=== PATIENT | female | born 2000 | race Caucasian/White ===

== ENCOUNTER 2024-10-22 22:15 | Observation (INO) ==
[2024-10-22 22:50] LABS: Basophils # (auto) 0.05 K/uL (0.00-0.20); Basophils % (auto) 0.4 %; Eosinophils # (auto) 0.09 K/uL (0.00-0.50); Eosinophils % (auto) 0.7 %; Hematocrit (blood only) 39.4 % (37.0-47.0); Hemoglobin 13.7 g/dl (12.0-16.0); Immature Granulocytes # (auto) 0.05 K/uL (0.01-0.20); Immature Granulocytes % (auto) 0.4 %; Lymphocytes # (auto) 3.39 K/uL (1.20-3.40); Lymphocytes % (auto) 26.2 %; Mean Corpuscular Hemoglobin 27.5 pg (25.0-34.0); Mean Corpuscular Hgb Conc 34.8 g/dL (32.0-36.0); Mean Corpuscular Volume 79.1 fL (80.0-100.0); Mean Platelet Volume 9.8 fL (9.4-12.4); Monocytes % (auto) 5.4 %; Neutrophils # (auto) 8.64 K/uL (1.40-6.50); Neutrophils % (auto) 66.9 %; Platelet Count 305 K/uL (130-400); RDW Coefficient of Variation 12.5 % (11.5-14.5); RDW Standard Deviation 35.5 fL (36.4-46.3); Red Blood Count 4.98 M/uL (4.20-5.40); White Blood Count 12.92 K/ul (4.8-10.8)
[2024-10-22 23:09] LABS: Albumin Globulin Ratio 1.8 (0.9-2); Albumin Level 4.6 gm/dl (3.4-5.0); BUN Creatinine Ratio 15.6 (10-20); Bilirubin,Total 0.3 mg/dl (0.2-1.0); Calcium 9.4 mg/dl (8.6-10.3); Creatinine Clr Calc Pharmacy 83.2 ml/min; Globulin 2.6 gm/dl (2.5-4.0); Potassium 3.8 mmol/L (3.5-5.1); Total Protein 7.2 gm/dl (6.0-8.3)
[2024-10-22 23:16] LABS: Acetaminophen < 3 ug/ml (10-30); Salicylate < 3.0 mg/dl (3.0-30)
[2024-10-22 23:24] LABS: Thyroid Stimulating Hormone 2.858 uIu/ml (0.300-4.500)
[2024-10-22 23:51] LABS: Appearance Urine Clear (Clear); Bilirubin Urine Negative (Negative); Blood Urine Negative (Negative); Color Urine Yellow; Glucose Urine UA Negative (Negative); Ketones Urine Trace (Negative); Leukocyte Esterase Urine Negative (Negative); Nitrite Urine Negative (Negative); Protein Urine Negative (Negative); Specific Gravity Urine 1.026 (1.000-1.030); Urobilinogen Urine Negative (Negative); pH Urine 6.5 (4.5-7.5)
[2024-10-23 00:18] LABS: Amphetamines+Metham, Urine Neg (Neg); Barbiturates, Urine Neg (Neg); Benzodiazepine, Urine Neg (Neg); Cocaine, Urine Neg (Neg); Fentanyl, Urine Neg (Neg); MDMA (Ecstacy), Urine Neg (Neg); Marijuana, Urine Neg (Neg); Methadone, Urine Neg (Neg); Opiate, Urine Neg (Neg); Phencyclidine, Urine Neg (Neg)
--- NOTE | 2024-10-23 00:31 | Emergency Department Note ---
Impression & Plan Drug overdose, multiple drugs, Observed seizure-like activity ED Provider Note NAME: VONNIE ARREDONDO AGE: 23 SEX: F : 2000 ARRIVES VIA: Ambulance INFORMANT: Patient, ED PROVIDER(S): Socorro Fields MD CHIEF COMPLAINT: Medication overdose HPI: This this is a 23-year-old female present for medication overdose. Patient states that she is currently at the [facility]; a psychiatric facility nearby. She states that she been given medications for the last 3 weeks however she did not take his medications. Instead she states that she stashed them and then took all 3 weeks worth at once. She notes these medications included Thorazine, Prozac, Mucinex, Atarax, Ativan, metformin, Singulair, Zyprexa, Trileptal, Topamax and trazodone. She notes that she did have a seizure however had no postictal period as per EMS. EMS states that they used the ammonia salts to stop her seizure. She states she just medication around 3/4 PM, 7+ hours ago. ROS: See above HPI for pertinent positives & negatives. A total of 10 systems reviewed and were otherwise negative. PAST MEDICAL HISTORY: See Below PAST SURGICAL HISTORY: See Below FAMILY HISTORY: See Below SOCIAL HISTORY: See Below HOME MEDICATIONS: See Below ALLERGIES: See Below VITALS: See Below PHYSICAL EXAMINATION: General: resting comfortably in no acute distress Head: Normocephalic and atraumatic Eyes: Normal inspection, extraocular muscles intact Ear, nose, throat: Normal external exam Neck: Normal range of motion Respiratory: lungs clear to auscultation bilaterally Cardiovascular: Regular rate/rhythm, no murmur GI: soft, nontender, no guarding or rebound Extremities: nontender, moves all extremities Neuro: The patient awake and alert, appropriately conversive, no focal deficits, symmetric faces Skin: Warm, dry, and intact MEDICAL DECISION MAKING: This is a 23-year-old female seen for medication overdose. Patient has a large list of medications that she was on at the facility. At this time she has no abnormal vital signs noted including hypotension, tachycardia, tachypnea, hypoxia. She appears clinically well, not confused, sedated, altered in any way. No signs of serotonin syndrome. -Bloodwork is reviewed showing no significant leukocytosis, anemia, electrolyte or creatinine abnormality -No coingestions -ECG independently interpreted by me with normal sinus rhythm, rate of 88, normal axis, normal NV, normal QRS, normal QTc, no ST segment elevations consistent with STEMI criteria -Poison Control Center recommends 8 hours of observation -Patient had episode of seizure-like activity, body shaking without tonic-clonic movements.. I observed this which is responsive to sternal rub. Based quickly. There is no tachycardia during seizure-like activity. Will send a lactic acid to help confirm true seizure-like activity -Lactic acid currently negative -Care discussed with Dr. Noonan for admission, on-call hospitalist Differential diagnosis: Medication overdose, SI, seizure Independent History obtained from: Staff member at facility Diagnostics interpreted by me: ECG: See above Cardiac Monitoring: An order was placed for continuous cardiac monitoring. The monitor shows a rate of 77 with sinus rhythm. Critical Care Note: I have personally spent 37 minutes of critical care time in the direct management of this patient. This includes bedside care, interpretation of diagnostic studies, and testing, discussion with consultants, patient, and family members, and other required patient management activities. This 37 minutes is in excess of all separately billable procedures. Past Med/Surg History Problem List (Updated 10/23/24 @ 01:27 by Socorro Fields MD) Observed seizure-like activity (Acute) Drug overdose, multiple drugs (Acute) Social History Smoking Status: Current some day smoker Preferred Language: Mongolian Allergies Allergies Allergy/AdvReac Type Severity Reaction Status Date / Time cinnamon Allergy Anaphylaxis Verified 10/22/24 23:20 ibuprofen AdvReac Unknown Verified 10/22/24 23:20 latex AdvReac Unknown Verified 10/22/24 23:20 melatonin AdvReac Unknown Verified 10/22/24 23:20 quetiapine AdvReac Agitated Verified 10/22/24 23:20 Home Meds Home Medications Medication Instructions Recorded Confirmed Advair Diskus mcg inhalation BID 10/22/24 [place] 3 1,000 mg PO QAM 10/22/24 10/22/24 Singulair 10 mg PO QAM 10/22/24 10/22/24 Topamax 100 mg PO QAM 10/22/24 10/22/24 Trileptal 300 mg PO BID 10/22/24 10/22/24 albuterol 90 mcg inhalation Q4 PRN asthma 10/22/24 10/22/24 fluoxetine 40 mg PO QAM 10/22/24 10/22/24 hydroxyzine HCl 50 mg PO TID 10/22/24 10/22/24 levothyroxine 50 mcg PO QAM 10/22/24 10/22/24 metformin 500 mg PO QAM 10/22/24 10/22/24 trazodone 50 mg PO QPM 10/22/24 10/22/24 Results & Data (ED) Vital Signs Vital Signs - 24 hr 10/22/24 22:23 10/22/24 22:43 10/22/24 22:52 Temperature 36.5 C Temperature Source Oral Pulse Rate 91 H 89 Pulse Rate [Apical] Respiratory Rate 18 Respiratory Effort / Characteristics Respiratory Depth Respiratory Pattern Blood Pressure 124/82 Blood Pressure [Right Arm] Blood Pressure Mean 96 Blood Pressure Mean [Right Arm] Blood Pressure Position [Right Arm] Pulse Oximetry 96 96 Oxygen Delivery Method Room Air Sepsis Recent Fever Within 48 Hours No Sepsis New/Unexplained Change in Mental Status N/A Sepsis Action Taken by Nursing No Action Required 10/23/24 00:06 Temperature Temperature Source Pulse Rate Pulse Rate [Apical] 77 Respiratory Rate 20 Respiratory Effort / Characteristics Non-Labored Spontaneous Respiratory Depth Normal Respiratory Pattern Regular Blood Pressure Blood Pressure [Right Arm] 106/67 Blood Pressure Mean Blood Pressure Mean [Right Arm] 80 Blood Pressure Position [Right Arm] Lying Pulse Oximetry 98 Oxygen Delivery Method Room Air Sepsis Recent Fever Within 48 Hours Sepsis New/Unexplained Change in Mental Status Sepsis Action Taken by Nursing Laboratory Data 10/22/24 22:30 10/22/24 22:30 Lab Results 10/22/24 10/22/24 10/23/24 Range/Units 22:30 22:37 00:17 WBC 12.92 H (4.8-10.8) K/ul RBC 4.98 (4.20-5.40) M/uL Hgb 13.7 (12.0-16.0) g/dl Hct 39.4 (37.0-47.0) % MCV 79.1 L (80.0-100.0) fL MCH 27.5 (25.0-34.0) pg MCHC 34.8 (32.0-36.0) g/dL RDW Std Deviation 35.5 L (36.4-46.3) fL RDW Coeff of Jennifer 12.5 (11.5-14.5) % Plt Count 305 (130-400) K/uL MPV 9.8 (9.4-12.4) fL Immature Gran % (Auto) 0.4 % Neut % (Auto) 66.9 % Lymph % (Auto) 26.2 % [place] % (Auto) 5.4 % Eos % (Auto) 0.7 % Baso % (Auto) 0.4 % Neut # (Auto) 8.64 H (1.40-6.50) K/uL Lymph # (Auto) 3.39 (1.20-3.40) K/uL [place] # (Auto) 0.70 H (0.11-0.59) K/uL Eos # (Auto) 0.09 (0.00-0.50) K/uL Baso # (Auto) 0.05 (0.00-0.20) K/uL Immature Gran # (Auto) 0.05 (0.01-0.20) K/uL Sodium 137 (136-145) mmol/L Potassium 3.8 (3.5-5.1) mmol/L Chloride 107 (98-107) mmol/L Carbon Dioxide 22 (21-32) mmol/L Anion Gap 8 (3-11) BUN 14 (6-23) mg/dl Creatinine 0.90 (0.6-1.2) mg/dl Est Cr Clr Drug Dosing 83.2 ml/min eGFR 91.55 BUN/Creatinine Ratio 15.6 (10-20) Glucose 95 (70-99(Fasting)) mg/dl Lactate 0.8 (0.4-2.0) mmol/L Calcium 9.4 (8.6-10.3) mg/dl Total Bilirubin 0.3 (0.2-1.0) mg/dl AST 14 (13-39) U/L ALT 12 (7-52) U/L Alkaline Phosphatase 97 (34-104) U/L Total Protein 7.2 (6.0-8.3) gm/dl Albumin 4.6 (3.4-5.0) gm/dl Globulin 2.6 (2.5-4.0) gm/dl Albumin/Globulin Ratio 1.8 (0.9-2) TSH 2.858 (0.300-4.500) uIu/ml Urine Color Yellow Urine Appearance Clear (Clear) Urine pH 6.5 (4.5-7.5) Ur Specific [place] 1.026 (1.000-1.030) Urine Protein Negative (Negative) Urine Glucose (UA) Negative (Negative) Urine Ketones Trace H (Negative) Urine Blood Negative (Negative) Urine Nitrite Negative (Negative) Urine Bilirubin Negative (Negative) Urine Urobilinogen Negative (Negative) Ur Leukocyte Esterase Negative (Negative) Salicylates < 3.0 L (3.0-30) mg/dl Urine Opiates Screen Neg (Neg) Ur Methadone, Qual Neg (Neg) Urine Fentanyl Screen Neg (Neg) Acetaminophen < 3 L (10-30) ug/ml Urine Barbiturates Neg (Neg) Ur Phencyclidine (PCP) Neg (Neg) U Amphetamin/Meth Scrn Neg (Neg) MDMA (Ecstasy) Screen Neg (Neg) U Benzodiazepines Scrn Neg (Neg) Ur Cocaine Metabolite Neg (Neg) U Marijuana (THC) Screen Neg (Neg) Ethyl Alcohol mg/dL < 10.0 (<10.0) mg/dl SARS-CoV-2, RNA, NAAT NEGATIVE (NEGATIVE) Discharge Plan Visit Data Chief Complaint: Seizure Stated Complaint: SEIZURE, OVERDOSE ED Provider: Socorro Fields Discharge Problem: Drug overdose, multiple drugs, Observed seizure-like activity Forms Stand Alone Forms: My [facility] Prescriptions Prescriptions: No Action Advair Diskus inhalation BID fluoxetine capsule 40 mg PO QAM hydroxyzine HCl 50 mg PO TID levothyroxine 50 mcg PO QAM [place] 3 1,000 mg PO QAM Singulair 10 mg PO QAM Topamax 100 mg PO QAM Trileptal 300 mg PO BID albuterol 90 mcg inhalation Q4 PRN (Reason: asthma) metformin 500 mg PO QAM trazodone 50 mg PO QPM Referrals Referrals: Joana Langley [Primary Care Provider] - Discharge Problem: Drug overdose, multiple drugs Qualifiers: Encounter type: initial encounter Injury intent: intentional self-harm Q ualified Code(s): T50.912A - Poisoning by multiple unspecified drugs, medicaments and biological substances, intentional self-harm, initial encounter
--- NOTE | 2024-10-23 01:18 | History & Physical Report ---
Date of Service October 23, 2024 Assessment & Plan (1) Observed seizure-like activity: (2) Drug overdose, multiple drugs: Plan Patient w/ hx of Depression, Hypothyroidism, and admission to [facility] due to threat of self harm in separate admission to another hospital 1 month ago who comes to ED after intentional medication overdose and seizure-like activity. Medication overdose - Patient with stated medication overdose as detailed above. 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) - Patient states she had an episode of seizures in the past, and when asked she stated first that it was 10 years ago and then that it was 13 years ago; never treated - Patient's initial episode seen by EMS resolving with smelling salts, and episodes in ED being interrupted by noxious stimuli does not follow typical pattern for usual tonic/clonic seizures ?suggestive of PNES given psychiatric hx - Will hold off addition of anti-seizure medications and/or neurology consult given episodes do not appear to follow typical neurologic pattern, but instead raise the question for PNES - Psychiatry consulted as detailed above Asthma - Uses inhaler twice a day to prevent episodes of SOB (not because she feels SOB0 - Continue albuterol inh prn Dispo: Admit to PCU with 1:1 Fluids: NSS Diet: Regular VTE ppx: Ambulation History of Present Illness Chief Complaint: Intentional Overdose, Seizure-like activity Primary Care Provider: Joana Langley Patient w/ hx of Depression, Hypothyroidism, and admission to [facility] due to threat of self harm in separate admission to another hospital 1 month ago who comes to ED after intentional medication overdose. Patient currently staying in [facility] for "adjustment of medication" after she threatened to hurt herself if they discharge her from the hospital she was admitted to which she cannot recall the name of. While in [facility], she was being given her pills daily that she then hid away for 3 weeks and took them all today (3 weeks worth of Thorazine, Prozac, Mucinex, Ativan, Metformin, Singulair, Zyprexa, Topamax, and Trazodone). When EMS arrived, patient was having a seizure that resolved after EMS used smelling salts. After arrival to ED, patient had 3-4 more episodes of seizures lasting around 2-3 minutes of whole body jerking and mild confusion for ~1 minutes after event ended. Nursing states that during seizure- like activity, patient would withdraw from sternal rub (and the first episode resolved after a sternal rub was applied). On her 4th seizure-activity, patient once again withdrew from sternal rub and from noxious stimuli with press of nail bed. After this event ended, patient appeared confused for a few seconds and then responded when her name was called. Patient states she has no family members nearby and does not believe any family members would come visit. Labs/Imaging: CBC with mild leukocytosis with neutrophilic predominance, Hgb of 13.7 with low MCV (79.1). CMP w/o electrolyte abnormalities and renal markers within reference range. LFTs unremarkable. TSH of 2.858. UTox negative. Medical History: [Reviewed] Medications: [Reviewed] Surgical History: [Reviewed] Family history: [Reviewed] Allergies: [Reviewed] Social History: [Reviewed] Allergies Allergy/AdvReac Type Severity Reaction Status Date / Time cinnamon Allergy Anaphylaxis Verified 10/22/24 23:20 ibuprofen AdvReac Unknown Verified 10/22/24 23:20 latex AdvReac Unknown Verified 10/22/24 23:20 melatonin AdvReac Unknown Verified 10/22/24 23:20 quetiapine AdvReac Agitated Verified 10/22/24 23:20 Home Medications Medication Instructions Recorded Confirmed Type Advair Diskus mcg inhalation BID 10/22/24 History [place] 3 1,000 mg PO QAM 10/22/24 10/22/24 History Singulair 10 mg PO QAM 10/22/24 10/22/24 History Topamax 100 mg PO QAM 10/22/24 10/22/24 History Trileptal 300 mg PO BID 10/22/24 10/22/24 History albuterol 90 mcg inhalation Q4 PRN asthma 10/22/24 10/22/24 History fluoxetine 40 mg PO QAM 10/22/24 10/22/24 History hydroxyzine HCl 50 mg PO TID 10/22/24 10/22/24 History levothyroxine 50 mcg PO QAM 10/22/24 10/22/24 History metformin 500 mg PO QAM 10/22/24 10/22/24 History trazodone 50 mg PO QPM 10/22/24 10/22/24 History Past Med/Surg History Problem List (Updated 10/23/24 @ 01:27 by Socorro Fields MD) Observed seizure-like activity (Acute) Drug overdose, multiple drugs (Acute) Social History Smoking Status: Current every day smoker Tobacco Type: Cigarettes Cigarettes Per Day: 2 packs per day; Hx Alcohol Use: Yes Hx Substance Use: No Preferred Language: Malay Communication Ability: Effective Crate Tier Required: No Beliefs That Will Affect Care: None Current Living Situation: Other Current Living Situation Comment: [facility] Assistive Devices: Glasses Review of Systems Review of Systems: As per HPI Physical Exam Physical Exam: GENERAL: AAOx4, afebrile, calm, NAD HEAD: AT, NC EYES: ANTHONY, EOM intact THROAT: normal to visual inspection CHEST: symmetric chest expansions with respirations CARDIO: RRR, no r/m/g PULMONARY: CTA b/l, normal respiratory effort, no respiratory distress GI: soft, non tender, non distended EXTREMITIES: no swelling or calf tenderness b/l SKIN: no rashes or skin lacerations NEURO: speech of normal content and pace, no focal neurologic deficits and motor/sensory function is preserved Results & Data Results & Data Vital Signs (Past 12 Hours) Vital Signs Temp Pulse Pulse Resp BP BP Pulse Ox 10/23/24 00:06 77 20 106/67 98 10/22/24 22:52 96 10/22/24 22:43 89 10/22/24 22:23 36.5 C 91 H 18 124/82 96 O2 Del Method 10/23/24 00:06 Room Air 10/22/24 22:52 Room Air 10/22/24 22:43 10/22/24 22:23 Supervising Physician Co-Signing Physician Notes Attending addendum: I have physically seen this patient, have supervised the medical residents activities, and agree with the H&P unless as otherwise noted. Assessment and Plan: The patient is a 23-year-old female with past medical history including depression, hypothyroidism, and recent admission to [facility] psychiatry. She was determined to be eighth a threat to herself, with potential self-harm, at a previous admission in the hospital 1 month ago. She comes to the emergency department at [facility] with intentional medication overdose and seizure- like activity. #Medication overdose the patient will be admitted to telemetry for serial cardiac enzymes, serial EKG's, cardiac rhythm monitoring and a 2-D echocardiogram with Dopplers. Placed on maintenance IV fluids Follow serial laboratories Consult to psychiatry Seizure versus psychogenic nonepileptic seizures- No history of previous treatment noted Monitor on telemetry Any use of antiseizure medications will be depend upon psychiatry and/or neurology input Asthma- Continue routine albuterol inhaler as needed Patient be mated to one-to-one observation . Resident Activity Tracking Resident Involvement: Resident Care Provided Care Provided: Adult Hospital Medicine (2) Drug overdose, multiple drugs Encounter type: initial encounter Injury intent: intentional self-harm Qualified Code(s): T50.912A - Poisoning by multiple unspecified drugs, medicaments and biological substances, intentional self-harm, initial encounter
[2024-10-23] MEDS ORDERED: POLYETHYLENE (MIRALAX) 17 GM PACK PO PRN (03:32)
[2024-10-23] MEDS: SODIUM CHLORIDE 0.9% 1,000 ML IV SCH (03:42)
--- NOTE | 2024-10-23 06:03 | Billing Data ---
Date of Service October 23, 2024 Coding Level of Care Code 23890 INT INP/OBS CARE
[2024-10-23] MEDS ORDERED: PHARMACY GLYCEMIC MGMT CONSULT PRN (08:58)
[2024-10-23] MEDS ORDERED: GLUCOSE 40% GEL 15 GM TUBE PO PRN (09:30)
[2024-10-23] MEDS ORDERED: GLUCOSE 10 TAB/TUBE PO PRN (09:30)
[2024-10-23] MEDS ORDERED: CARBOHYDRATES FOR HYPOGLYCEMIA PO PRN (09:30)
[2024-10-23] MEDS ORDERED: DEXTROSE 50% 50 ML SYRINGE IV PRN (09:30)
[2024-10-23] MEDS ORDERED: GLUCAGON FOR INJ 1 MG VIAL SQ PRN (09:30)
[2024-10-23] MEDS: INSULIN ASPART PER UNIT CHARGE SC SCH (11:46)
--- NOTE | 2024-10-23 13:14 | Electrocardiogram Report ---
Test Reason : Blood Pressure : */* mmHG Vent. Rate : 88 BPM Atrial Rate : 88 BPM P-R Int : 178 ms QRS Dur : 74 ms QT Int : 376 ms P-R-T Axes : 43 3 25 degrees QTcB Int : 454 ms Normal sinus rhythm with sinus arrhythmia Low voltage QRS Borderline ECG No previous ECGs available Confirmed by Kyle Leon ([id number]) on 10/23/2024 1:14:08 PM Referred By: Joana Langley Confirmed By: Kyle Leon
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
[2024-10-23] MEDS: ACETAMINOPHEN 325 MG TAB PO PRN (18:09)
[2024-10-23] MEDS: MONTELUKAST SODIUM 10 MG TABLET PO SCH (20:06)
[2024-10-23] MEDS: OXcarbazepine 150 MG TABLET PO SCH (20:06)
[2024-10-23] MEDS: ALBUTEROL HFA 8 GM INHALER INH PRN (22:03)
[2024-10-24 07:17] LABS: Hematocrit (blood only) 37.8 % (37.0-47.0); Hemoglobin 12.9 g/dl (12.0-16.0); Mean Corpuscular Hemoglobin 27.3 pg (25.0-34.0); Mean Corpuscular Hgb Conc 34.1 g/dL (32.0-36.0); Mean Corpuscular Volume 79.9 fL (80.0-100.0); Mean Platelet Volume 9.9 fL (9.4-12.4); Platelet Count 258 K/uL (130-400); RDW Coefficient of Variation 12.5 % (11.5-14.5); RDW Standard Deviation 35.9 fL (36.4-46.3); Red Blood Count 4.73 M/uL (4.20-5.40); White Blood Count 8.15 K/ul (4.8-10.8)
[2024-10-24 07:41] VITALS: RESP 18
[2024-10-24 07:41] LABS: BUN Creatinine Ratio 9.1 (10-20); Calcium 8.8 mg/dl (8.6-10.3); Creatinine Clr Calc Pharmacy 135.3 ml/min; Potassium 3.9 mmol/L (3.5-5.1)
[2024-10-24 08:33] LABS: Estimated Average Glucose 103 mg/dl; Hemoglobin A1C 5.2 % (4.5-5.6)
--- OUTSIDE RECORDS SUMMARY | 2024-10-24 09:39 | External Medical Summary | Continuity of Care Document ---
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 Name Role Phone Louisa Guerrero Primary Care Physician [phone] [id number] - 09/01/24 [facility] [address] Encounter Diagnosis Fall on ice(Discharge Diagnosis) - 09/01/24 Back pain(Discharge Diagnosis) - 09/01/24 Left foot pain(Discharge Diagnosis) - 09/01/24 Neck pain(Discharge Diagnosis) - 09/01/24 Discharge Disposition: Home or Self Care Attending Physician: DO Hartley Scott Charles Referring Physician: DO Hartley Scott Charles Allergies, Adverse Reactions, Alerts Substance Criticality Severity Reaction Reaction Severity Status ibuprofen rebound headache Act jack melatonin unknown Active cinnamon anaphylaxis Active SEROquel Aggression homicidal ideation suicidal ideation Active Latex Itching swelling Active Assessment and Plan Extracted from: Title:Office Visit Note - APSO Author:DO Hartley Scott Charles Date:09/01/24 1.Fall on ice Patient had significant follow-upat work causing back pain neck pain and other concernsat this time we will provide muscle relaxer continue Aleve and Tylenol I think physical therapy is the best optionthere is noserious trauma to right think any broken bones occurred or that we would need x-ray or furtherworkup and that sincecontinued Tylenol usemuscle relaxerstrictly at night to help withsymptoms of pain and help youto be able to sleep let us know if any other concerns or issuesgave note to stay out of work this weekend in order to rest out let us know if you are feeling betterand you can return to work but at this point I thinkrest andphysical therapyand the Aleve and Tylenol are the best option 2.Back pain 3.Left foot pain 4.Neck pain Immunizations Given and Recorded Vaccine Date Status Refusal Reason influenza virus vaccine, inactivated 05/18/24 Give n influenza virus vaccine, inactivated 1 04/29/22 Re corded influenza virus vaccine, inactivated 2 05/06/20 Re corded influenza virus vaccine, inactivated 08/22/19 Ronen rded influenza virus vaccine, inactivated 05/29/17 Ronen rded influenza virus vaccine, inactivated 3 05/15/09 Re corded influenza virus vaccine, inactivated 05/15/09 Ronen rded influenza virus vaccine, inactivated 05/15/09 Ronen rded influenza virus vaccine, inactivated 4 07/15/08 Re corded influenza virus vaccine, inactivated 07/15/08 Ronen rded influenza virus vaccine, inactivated 07/15/08 Ronen rded rabies vaccine, purified chick embryo 5 10/03/22 R ecorded rabies vaccine, purified chick embryo 6 09/26/22 R ecorded rabies vaccine, purified chick embryo 7 09/22/22 R ecorded rabies vaccine, purified chick embryo 8 09/19/22 R ecorded tetanus/diphtheria/pertuss, acel (Tdap) 09/19/22 R ecorded tetanus/diphtheria/pertuss, acel (Tdap) 9 02/08/13 Recorded pneumococcal 13-valent vaccine 10 10/18/21 Recorde d haemophilus b conj (PRP-OMP) vaccine 11 10/12/21 R ecorded haemophilus b conj (PRP-OMP) vaccine 03/09/02 Ronen rded haemophilus b conj (PRP-OMP) vaccine 02/24/01 Ronen rded haemophilus b conj (PRP-OMP) vaccine 05/19/00 Ronen rded haemophilus b conj (PRP-OMP) vaccine 03/31/00 Ronen rded SARS COVID Vaccine Unspecified 06/12/21 Recorded SARS-CoV-2 (COVID-19) mRNA-1273 vaccine 12 10/11/20 Recorded SARS-CoV-2 (COVID-19) mRNA-1273 vaccine 13 09/13/20 Recorded meningococcal group B vaccine 06/29/18 Recorded meningococcal conjugate vaccine 08/25/17 Recorded meningococcal conjugate vaccine 14 02/08/13 Record ed human papillomavirus vaccine 15 02/25/17 Recorded human papillomavirus vaccine 16 10/21/16 Recorded human papillomavirus vaccine 17 08/23/16 Recorded Meningococcal Vaccine Unspecified 02/08/13 Recorde d varicella virus vaccine 18 03/13/10 Recorded varicella virus vaccine 19 06/01/01 Recorded Hepatitis A Vaccine Unspecified 12/04/06 Recorded Hepatitis A Vaccine Unspecified 05/27/06 Recorded hepatitis A pediatric vaccine 12/04/06 Recorded hepatitis A pediatric vaccine 05/27/06 Recorded hepatitis A adult vaccine 20 12/04/06 Recorded hepatitis A adult vaccine 21 05/27/06 Recorded poliovirus vaccine, inactivated 22 09/11/04 Record ed poliovirus vaccine, inactivated 23 06/01/01 Record ed poliovirus vaccine, inactivated 24 02/24/01 Record ed poliovirus vaccine, inactivated 25 05/19/00 Record ed poliovirus vaccine, inactivated 26 03/31/00 Record ed measles/mumps/rubella virus vaccine 27 09/11/04 Re corded measles/mumps/rubella virus vaccine 28 02/24/01 Re corded diphtheria/tetanus/pertuss, acel (DTaP) 29 09/11/04 Recorded diphtheria/tetanus/pertuss, acel (DTaP) 30 06/01/01 Recorded diphtheria/tetanus/pertuss, acel (DTaP) 31 02/18/01 Recorded diphtheria/tetanus/pertuss, acel (DTaP) 32 05/19/00 Recorded diphtheria/tetanus/pertuss, acel (DTaP) 33 03/31/00 Recorded pneumococcal 7-valent vaccine 07/27/01 Recorded pneumococcal 7-valent vaccine 06/01/01 Recorded hepatitis B adult vaccine 02/24/01 Recorded hepatitis B adult vaccine 03/31/00 Recorded hepatitis B adult vaccine 99 Recorded hepatitis B pediatric vaccine 02/24/01 Recorded hepatitis B pediatric vaccine 03/31/00 Recorded hepatitis B pediatric vaccine 99 Recorded 1Result Comment: Auto Bumper Straightener: [employer] PA[employer] 2Result Comment: Unit: Unknown Route: Intramuscular Auto Bumper Straightener: Sanof[employer] P[employer]ur 3Result Comment: Auto Bumper Straightener: Unknown Auto B[employer] Straightener 4Result Comment: Auto Bumper Straightener: Unknown Auto B[employer] Straightener 5Result Comment: Auto Bumper Straightener: Sanofi Pasteur 6Result Comment: Auto Bumper Straightener: Sanof[employer] P[employer]ur 7Result Comment: Auto Bumper Straightener: Sanof[employer] P[employer]ur 8Result Comment: Auto Bumper Straightener: Sanofi Pasteur 9Result Comment: Auto Bumper Straightener: Not Listed 10Result Comment: Auto Bumper Straightener: [email or web address] [place] 11Result Comment: Auto Bumper Straightener: [employer] 12Result Comment: Unit: Unknown Route: Intramuscular Auto Bumper Straightener: [employer] 13Result Comment: Unit: Unknown Route: Intramuscular Auto Bumper Straightener: [employer] 14Result Comment: Auto Bumper Straightener: SANOFI PASTEUR 15Result Comment: Auto Bumper Straightener: [employer] 16Result Comment: Auto Bumper Straightener: [employer] 17Result Comment: Auto Bumper Straightener: [employer] 18Result Comment: Auto Bumper Straightener: Unknown Auto Bumper Straightener 19Result Comment: Auto Bumper Straightener: Unknown Auto [employer] Straightener 20Result Comment: Auto Bumper Straightener: Unknown Auto Bumper Straightener Duplicate 21Result Comment: Auto Bumper Straightener: Unknown Auto Bumper Straightener Duplicate 22Result Comment: Auto Bumper Straightener: Unknown [employer] 23Result Comment: Auto Bumper Straightener: Unknown [employer] 24Result Comment: Auto Bumper Straightener: Unknown [employer]ener 25Result Comment: Auto Bumper Straightener: Unknown Auto B[employer] Stra[employer]ener 26Result Comment: Auto Bumper Straightener: Unknown Auto [employer] Stra[employer]ener 27Result Comment: Auto Bumper Straightener: Unknown Auto [employer] Stra[employer]ener 28Result Comment: Auto Bumper Straightener: Unknown Auto Bumper Straightener 29Result Comment: Auto Bumper Straightener: Unknown Auto Bumper Straightener 30Result Comment: Auto Bumper Straightener: Unknown Auto Bumper Straightener 31Result Comment: Auto Bumper Straightener: Unknown Auto Bumper Straightener 32Result Comment: Auto Bumper Straightener: Unknown Auto Bumper Straightener 33Result Comment: Auto Bumper Straightener: Unknown Auto Bumper Straightener Medications acetaminophen 650 mg oral tablet, extended release Start: 11/10/23 9:05:00 AM EDT, 1 tab, PO, q4h, as needed Start Date: 11/10/23 Status: Ordered Albuterol (Eqv-ProAir HFA) 90 mcg/inh inhalation aerosol Start: 11/25/23 6:23:00 PM EDT, 2 puffs, inhaled, q4h, Disp# 18 g, Refills: 3, PRN: as needed for wheezing, Pharmacy: [facility] Start Date: 11/25/23 Stop Date: 11/19/24 Status: Ordered albuterol 0.083% for nebulization Start: 12/10/23 12:41:00 PM EDT, 3 mL, inhaled, q6h, Disp# 30 each, Refills: 5, PRN: as needed for wheezing, Pharmacy: [id number] Start Date: 12/10/23 Status: Ordered calcium (as carbonate) 500 mg oral tablet Start: 05/07/22 10:03:00 AM EDT, PO, Daily, prn heartburn/indigestion Start Date: 05/07/22 Status: Ordered cetirizine 10 mg oral tablet Start: 11/25/23 6:32:00 PM EDT, 1 tab, PO, Daily, Disp# 90 tab, Refills: 3, PRN: as needed for allergy symptoms, Pharmacy: [facility] Start Date: 11/25/23 Stop Date: 11/19/24 Status: Ordered cyclobenzaprine 10 mg oral tablet Start: 09/01/24 2:48:00 PM EST, 1 tab, PO, tid, Disp# 63 tab, PRN: as needed for spasm, Pharmacy: [id number] Start Date: 09/01/24 Stop Date: 09/22/24 Status: Ordered Emgality Prefilled Pen 120 mg/mL subcutaneous solution Start: 10/15/23 2:10:00 PM EST, 120 mg =, subQ, once every 28 days Start Date: 10/15/23 Status: Ordered EpiPen Auto-Injector 0.3 mg injectable kit Start: 04/20/24 4:54:00 PM EDT, 0.3 mg =, IM, ONCE, Disp# 1 kit, Refills: 1, PRN: as needed for anaphylaxis, Pharmacy: [id number] Start Date: 04/20/24 Status: Ordered ferrous sulfate 325 mg (65 mg elemental iron) oral tablet Start: 11/10/23 9:13:00 AM EDT, 2 tabs, PO, Daily Start Date: 11/10/23 Status: Ordered FLUoxetine Start: 12/31/23 10:48:00 AM EDT, 40 mg =, PO, Daily Start Date: 12/31/23 Status: Ordered fluticasone 50 mcg/inh nasal spray Start: 05/07/22 9:57:00 AM EDT, 2 spray, each nostril, Daily, PRN: as needed for allergy symptoms Start Date: 05/07/22 Status: Ordered fluticasone-salmeterol Diskus 500 mcg-50 mcg Start: 05/18/24 6:17:00 PM EDT, 1 dose(s), inhaled, bid, Disp# 60 blister, Refills: 3, Note to Pharmacy: Send 3 diskus, Pharmacy: [facility] Start Date: 05/18/24 Stop Date: 05/13/25 Status: Ordered Lactaid Start: 11/13/23 2:09:00 PM EDT, 1 tab, PO, at start of lactose-containing meal Start Date: 11/13/23 Status: Ordered Leader Nicotine Polacrilex 2 mg oral transmucosal gum Start: 06/22/24 2:31:00 PM EST, PRN: as needed for smoking cessation Start Date: 06/22/24 Status: Ordered levothyroxine 50 mcg (0.05 mg) oral tablet Start: 05/18/24 6:20:00 PM EDT, 1 tab, PO, Daily, Disp# 90 tab, Refills: 3, Pharmacy: [facility] Start Date: 05/18/24 Stop Date: 05/13/25 Status: Ordered magnesium oxide 400 mg (241.3 mg elemental magnesium) oral tablet Start: 11/10/23 9:15:00 AM EDT, 1 tab, PO, Daily Start Date: 11/10/23 Status: Ordered montelukast 10 mg oral tablet Start: 07/20/24 3:51:00 PM EST, 1 tab, PO, qPM, Disp# 30 tab, Refills: 5, Pharmacy: [id number] Start Date: 07/20/24 Stop Date: 01/16/25 Status: Ordered Multi Vitamin+ Start: 05/07/22 10:03:00 AM EDT, 1 tab, PO, Daily Start Date: 05/07/22 Status: Ordered OLANZapine 10 mg oral tablet Start: 06/17/24 12:55:00 PM EST, 15 each, 0 Refill(s), TAKE 1 TABLET BY MOUTH AT BEDTIME INDICATIONS: MOOD REGULATION. Start Date: 06/17/24 Status: Ordered ondansetron 8 mg oral tablet, disintegrating Start: 11/10/23 9:16:00 AM EDT, 1 tab, PO, q8h, prn nausea and vomiting, PRN: anxiety Start Date: 11/10/23 Status: Ordered pantoprazole 40 mg oral delayed release tablet Start: 05/07/22 10:01:00 AM EDT, 1 tab, PO, Daily Start Date: 05/07/22 Status: Ordered potassium chloride Start: 11/10/23 9:17:00 AM EDT, 1 tab, every other day Start Date: 11/10/23 Status: Ordered rizatriptan 5 mg oral tablet Start: 11/10/23 9:17:00 AM EDT, 1 tab, PO, ONCE, take at onset, PRN: as needed for migraine headache Start Date: 11/10/23 Status: Ordered topiramate 50 mg oral tablet Start: 11/10/23 9:18:00 AM EDT, 1 tab, PO, bid Start Date: 11/10/23 Status: Ordered Vitamin D3 Start: 11/13/23 1:54:00 PM EDT, 2000 IU, PO, Daily Start Date: 11/13/23 Status: Ordered Problem List Condition Confirmation Course Effective Dates Status Health Status Informant Abnormal weight gain Confirmed Active Acne Confirmed Active Allergic rhinitis Confirmed Active Food allergy Confirmed Active Asthma Confirmed Active ADHD (attention deficit hyperactivity disorder), combined type Confirmed Active Bilateral lower extremity edema Confirmed Active Bipolar disorder in partial remission Confirmed Active Borderline personality disorder in adult Confirmed Active Depression Confirmed Active Ecchymosis Confirmed Active Edema Confirmed Active Elevated transaminase level Confirmed Active Folliculitis Confirmed Active Esophageal reflux Confirmed Active Generalized anxiety disorder Confirmed Active Hypertriglyceridemia Confirmed Active Hypothyroidism Confirmed Active Insomnia, unspecified Confirmed Active Intentional drug overdose Confirmed Active Irregular menstrual cycle Confirmed Active Menorrhagia Confirmed Active Migraines Confirmed Active Nausea and vomiting Confirmed Active OLIVER (obstructive sleep apnea) Confirmed Active Orthostatic hypotension Confirmed Active Left shoulder pain Confirmed Active Palpitations Confirmed Active Psoriasis Confirmed Active 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 Active Major depressive disorder, recurrent Confirmed Active Exogenous obesity Confirmed Active Suicidal ideation Confirmed Active Syncope Confirmed Active Tachycardia Confirmed Active TMJ (temporomandibular joint disorder) Confirmed Active Vitamin D deficiency Confirmed Active Diagnosis Diagnosis Type Effective Dates Health Status Cl inical Service Informant Neck pain Discharge Diagnosis 09/01/24 Non-Specified Left foot pain Discharge Diagnosis 09/01/24 Non-Specified Fall on ice Discharge Diagnosis 09/01/24 Non-Specified Back pain Discharge Diagnosis 09/01/24 Non-Specified Procedures Procedure Date Related Diagnosis Body Site Status Colonoscopy 01/15/22 Completed None Completed Vital Signs Most recent to oldest [Reference Range]: 1 Patient Weight 117.5 kg (09/01/24 2:38 PM) Heart Rate 100 bpm (09/01/24 2:38 PM) Blood Pressure 112/78mmHg (09/01/24 2:38 PM) BP Location # 1 Right Arm (09/01/24 2:38 PM) Social History Social History Type Response Smoking Status Former Smoker, quit > 1 yr Sex Female Sex Representation Female (finding) FCM Outpt Note * DO Hartley Scott Charles: PERFORM Event Display: FCM Outpt Note Authored Date: [id number] Assessment/Plan 1.Fall on ice Patient had significant follow-upat work causing back pain neck pain and other concernsat this time we will provide muscle relaxer continue Aleve and Tylenol I think physical therapy is the best optionthere is noserious trauma to right think any broken bones occurred or that we would needx-ray or furtherworkup and that sincecontinued Tylenol usemuscle relaxerstrictly at night to help withsymptoms of pain and help youto be able to sleep let us know if any other concerns orissuesgave note to stay out of work this weekend in order to rest out let us know if you are feeling betterand you can return to work but at this point I thinkrest andphysical therapyand the Aleve and Tylenol are the best option 2.Back pain 3.Left foot pain 4.Neck pain Chief Complaint WC foot, back, neck pain from fall History of Present Illness Patient had a fall at work 3 days ago slipped on ice and landed on her left sideon her buttocks area now having pain inmost of left sidebut no significant dysfunction able to movehead neck arms legs without difficulty some pain in the top of the left foototherwise doing wellbut significant pain tenderness some help with Aleve and Tylenol trouble at night getting a lot of pain trouble sleeping with thisdid not seek any treatment at that time because not significant injurybut overthe several days afterwards more significant paindevelops particularly at night Physical Exam Vitals & Measurements HR:100(Monitored) BP:112/78 WT:117.500kg(Dosing) WT:117.5kg Constitutional:Ceid-[id number] acute distress Cardiovascular:Normal rateNormal rhythmNo murmurNo dependent edema Pulmonary:Normal respiratory effortClear lung sounds bilaterally Skin: Warm, dry, no rash, no lesions Some tenderness in the paraspinal musculature of the backshoulderbut no significant concernsbruising or issues notedrange of motion normalthroughout neck back anklehips kneesand shoulderbut significant tenderness Problem List/Past Medical History Ongoing Abnormal weight gain Acne ADHD (attention deficit hyperactivity disorder), combined type Allergic rhinitis Asthma Bilateral lower extremity edema Bipolar disorder in partial remission Borderline personality disorder in adult Depression Ecchymosis Edema Elevated transaminase level Esophageal reflux Exogenous obesity Folliculitis Food allergy Generalized anxiety disorder Hypertriglyceridemia Hypothyroidism Insomnia, unspecified Intentional drug overdose Irregular menstrual cycle Left shoulder pain Major depressive disorder, recurrent Menorrhagia Migraines Nausea and vomiting Orthostatic hypotension OLIVER (obstructive sleep apnea) Palpitations Psoriasis 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 Suicidal ideation Syncope Tachycardia TMJ (temporomandibular joint disorder) Vitamin D deficiency Procedure/Surgical History Colonoscopy| Service Date: 01/15/2022None Medications acetaminophen(acetaminophen 650 mg oral tablet, extended release), 650 mg= 1 tab, PO, q4h albuterol(albuterol 0.083% for nebulization), 2.5 mg= 3 mL, inhaled, q6h, PRN, 5 refills albuterol(Albuterol (Eqv-ProAir HFA) 90 mcg/inh inhalation aerosol), 2 puffs, inhaled, q4h, PRN, 3 refills calcium carbonate(calcium (as carbonate) 500 mg oral tablet), PO, Daily cetirizine(cetirizine 10 mg oral tablet), 10 mg= 1 tab, PO, Daily, PRN, 3 refills cholecalciferol(Vitamin D3), 2000 IU, PO, Daily cyclobenzaprine(cyclobenzaprine 10 mg oral tablet), 10 mg= 1 tab, PO, tid, PRN EPINEPHrine(EpiPen Auto-Injector 0.3 mg injectable kit), 0.3 mg, IM, ONCE, PRN, 1 refills ferrous sulfate(ferrous sulfate 325 mg (65 mg elemental iron) oral tablet), 2 tabs, PO, Daily FLUoxetine, 40 mg, PO, Daily fluticasone nasal(fluticasone 50 mcg/inh nasal spray), 2 spray, each nostril, Daily, PRN fluticasone-salmeterol(fluticasone-salmeterol Diskus 500 mcg-50 mcg), 1 dose(s), inhaled, bid, 3 refills galcanezumab(Emgality Prefilled Pen 120 mg/mL subcutaneous solution), 120 mg, subQ lactase(Lactaid), 1 tab, PO levothyroxine(levothyroxine 50 mcg (0.05 mg) oral tablet), 50 mcg= 1 tab, PO, Daily, 3 refills magnesium oxide(magnesium oxide 400 mg (241.3 mg elemental magnesium) oral tablet), 400 mg= 1 tab, PO, Daily montelukast(montelukast 10 mg oral tablet), 10 mg= 1 tab, PO, qPM, 5 refills multivitamin(Multi Vitamin+), 1 tab, PO, Daily nicotine(Leader Nicotine Polacrilex 2 mg oral transmucosal gum), PRN OLANZapine(OLANZapine 10 mg oral tablet) ondansetron(ondansetron 8 mg oral tablet, disintegrating), 8 mg= 1 tab, PO, q8h, PRN pantoprazole(pantoprazole 40 mg oral delayed release tablet), 40 mg= 1 tab, PO, Daily potassium chloride, 1 tab rizatriptan(rizatriptan 5 mg oral tablet), 5 mg= 1 tab, PO, ONCE, PRN topiramate(topiramate 50 mg oral tablet), 50 mg= 1 tab, PO, bid Allergies LatexItching, swelling SEROquelAggression, homicidal ideation, suicidal ideation cinnamonanaphylaxis ibuprofenrebound headache melatoninunknown Social History Smoking Status Former Smoker, quit > 1 yr Tobacco - Denies Tobacco Use Immunizations Vaccine Date Status influenza virus vaccine, inactivated 05/18/2024 Given rabies vaccine, purified chick embryo 10/03/2022 Recorded Comments : Auto Bumper Straightener: Sanofi Pasteur rabies vaccine, purified chick embryo 09/26/2022 Recorded Comments : Auto Bumper Straightener: Sanofi Pasteur rabies vaccine, purified chick embryo 09/22/2022 Recorded Comments : Auto Bumper Straightener: Sanofi Pasteur rabies vaccine, purified chick embryo 09/19/2022 Recorded Comments : Auto Bumper Straightener: Sanofi Pasteur tetanus/diphtheria/pertuss, acel (Tdap) 09/19/2022 Recorded influenza virus vaccine, inactivated 04/29/2022 Recorded Comments : Auto Bumper Straightener: SANOFI PA[employer]UR pneumococcal 13-valent vaccine 10/18/2021 Recorded Comments : Auto Bumper Straightener: [email or web address] [place] haemophilus b conj (PRP-OMP) vaccine 10/12/2021 Recorded Comments : Auto Bumper Straightener: [employer] SARS COVID Vaccine Unspecified 06/12/2021 Recorded SARS-CoV-2 (COVID-19) mRNA-1273 vaccine 10/11/2020 Recorded Comments : Unit: Unknown Route: Intramuscular Auto Bumper Straightener: [employer] SARS-CoV-2 (COVID-19) mRNA-1273 vaccine 09/13/2020 Recorded Comments : Unit: Unknown Route: Intramuscular Auto Bumper Straightener: [employer] influenza virus vaccine, inactivated 05/06/2020 Recorded Comments : Unit: Unknown Route: Intramuscular Auto Bumper Straightener: Sanofi Pasteur influenza virus vaccine, inactivated 08/22/2019 Recorded meningococcal group B vaccine 06/29/2018 Recorded meningococcal conjugate vaccine 08/25/2017 Recorded influenza virus vaccine, inactivated 05/29/2017 Recorded human papillomavirus vaccine 02/25/2017 Recorded Comments : Auto Bumper Straightener: [employer] human papillomavirus vaccine 10/21/2016 Recorded Comments : Auto Bumper Straightener: [employer] human papillomavirus vaccine 08/23/2016 Recorded Comments : Auto Bumper Straightener: [employer] Meningococcal Vaccine Unspecified 02/08/2013 Recorded tetanus/diphtheria/pertuss, acel (Tdap) 02/08/2013 Recorded Comments : Auto Bumper Straightener: Not Listed meningococcal conjugate vaccine 02/08/2013 Recorded Comments : Auto Bumper Straightener: [employer] varicella virus vaccine 03/13/2010 Recorded Comments : Auto Bumper Straightener: Unknown Auto Bumper Straightener influenza virus vaccine, inactivated 05/15/2009 Recorded Comments : Auto Bumper Straightener: Unknown Auto Bumper Straightener influenza virus vaccine, inactivated 05/15/2009 Recorded influenza virus vaccine, inactivated 05/15/2009 Recorded influenza virus vaccine, inactivated 07/15/2008 Recorded Comments : Auto Bumper Straightener: Unknown Auto Bumper Straightener influenza virus vaccine, inactivated 07/15/2008 Recorded influenza virus vaccine, inactivated 07/15/2008 Recorded Hepatitis A Vaccine Unspecified 12/04/2006 Recorded hepatitis A pediatric vaccine 12/04/2006 Recorded Hepatitis A Vaccine Unspecified 05/27/2006 Recorded hepatitis A pediatric vaccine 05/27/2006 Recorded poliovirus vaccine, inactivated 09/11/2004 Recorded Comments : Auto Bumper Straightener: Unknown Auto B[employer] Straightener measles/mumps/rubella virus vaccine 09/11/2004 Recorded Comments : Auto Bumper Straightener: Unknown Auto Bumper Straightener diphtheria/tetanus/pertuss, acel (DTaP) 09/11/2004 Recorded Comments : Auto Bumper Straightener: Unknown Auto Bumper Straightener haemophilus b conj (PRP-OMP) vaccine 03/09/2002 Recorded pneumococcal 7-valent vaccine 07/27/2001 Recorded varicella virus vaccine 06/01/2001 Recorded Comments : Auto Bumper Straightener: Unknown Auto Bumper Straightener poliovirus vaccine, inactivated 06/01/2001 Recorded Comments : Auto Bumper Straightener: Unknown Auto Bumper Straightener pneumococcal 7-valent vaccine 06/01/2001 Recorded diphtheria/tetanus/pertuss, acel (DTaP) 06/01/2001 Recorded Comments : Auto Bumper Straightener: Unknown Auto Bumper Straightener hepatitis B adult vaccine 02/24/2001 Recorded poliovirus vaccine, inactivated 02/24/2001 Recorded Comments : Auto Bumper Straightener: Unknown Auto Bumper Straightener measles/mumps/rubella virus vaccine 02/24/2001 Recorded Comments : Auto Bumper Straightener: Unknown Auto Bumper Straightener hepatitis B pediatric vaccine 02/24/2001 Recorded haemophilus b conj (PRP-OMP) vaccine 02/24/2001 Recorded diphtheria/tetanus/pertuss, acel (DTaP) 02/18/2001 Recorded Comments : Auto Bumper Straightener: Unknown Auto Bumper Straightener poliovirus vaccine, inactivated 05/19/2000 Recorded Comments : Auto Bumper Straightener: Unknown Auto Bumper Straightener haemophilus b conj (PRP-OMP) vaccine 05/19/2000 Recorded diphtheria/tetanus/pertuss, acel (DTaP) 05/19/2000 Recorded Comments : Auto Bumper Straightener: Unknown Auto Bumper Straightener hepatitis B adult vaccine 03/31/2000 Recorded poliovirus vaccine, inactivated 03/31/2000 Recorded Comments : Auto Bumper Straightener: Unknown Auto Bumper Straightener hepatitis B pediatric vaccine 03/31/2000 Recorded haemophilus b conj (PRP-OMP) vaccine 03/31/2000 Recorded diphtheria/tetanus/pertuss, acel (DTaP) 03/31/2000 Recorded Comments : Auto Bumper Straightener: Unknown Auto Bumper Straightener hepatitis B adult vaccine 1999 Recorded hepatitis B pediatric vaccine 1999 Recorded Recommendations Health Maintenance Pending(in the next year) Due Adult COVID-19 Vaccination due09/01/24Unknown Frequency Adult Folic Acid Supplementation due09/01/24and every 3year Adult Social Determinants of Health Screening due09/01/24Unknown Frequency Pneumococcal Vaccine Adults and Adolescents with Chronic Illness due09/01/24One-time only Due In Future Adult Influenza Vaccine not due until02/08/25and every 1year Satisfied(in the past 1 year) Satisfied Adult Influenza Vaccine on05/18/24.Satisfied by ROMERO Wallis Anne L Body Mass Index on05/18/24.Satisfied by ROMERO Wallis Anne L Depression Follow Up Plan on06/22/24.Satisfied by KAILYN Rouse Caitlin M Electronic Signature on File Electronically Reviewed/Signed by: Tor Hartley DO Author Signature Dt/Tm:09/01/2024 03:02PM Family Medicine [facility] Patient Care team information Care Team Related Persons Name: BENJAMIN MCKNIGHT"
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
--- OUTSIDE RECORDS SUMMARY | 2024-10-24 09:39 | External Medical Summary | Continuity of Care Document ---
Author Name Unknown Organization [facility] Address [address] [place] [address] BAMBI TANNER [phone] Care Team Providers Care Home Care Coordinator Name Role Phone Louisa Guerrero Primary Care Physician [phone] [facility]counter [facility] [id number] Date(s): 07/20/24 - 07/20/24 [facility] [address] BAMBI [id number] Encounter Diagnosis Borderline personality disorder in adult(Discharge Diagnosis) - 07/20/24 Suicidal ideation(Discharge Diagnosis) - 07/20/24 Allergic rhinitis(Discharge Diagnosis) - 07/20/24 Asthma(Discharge Diagnosis) - 07/20/24 Exogenous obesity(Discharge Diagnosis) - 07/20/24 Discharge Disposition: Home or Self Care Attending Physician: MD Guerrero Alice E Referring Physician: MD Guerrero Alice E Allergies, Adverse Reactions, Alerts Substance Criticality Severity Reaction Reaction Severity Status ibuprofen rebound headache Act jack melatonin unknown Active Latex Itching swelling Active cinnamon anaphylaxis Active SEROquel Aggression homicidal ideation suicidal ideation Active Assessment and Plan Extracted from: Title:OV-Borderline Author:MD Guerrero Alice E Da te:07/20/24 1.Borderline personality d isorder in adult She feels that she has been more stablesincebeing on Zyprexa. She is sleeping better at nightand is up to 15 mg at bedtime.Unfortunately, she has had some weight gain since being on the olanzapine, but is working with psychiatry to help stabilize this. 2.Suicidal ideation She has had at least 2trips to the emergency department because of suicidalthreats or ideation, but states that she does notfeelsuicidalat this time. She feels she has too much to live forand is activelypouring herself into training her dog. This past weekend was very difficult as it was the anniversary of her father's . 3.Allergic rhinitis Feels that her allergic rhinitis is improvedon the montelukast. 4.Asthma Has been more stable since being on montelukast regularlyand is not having as many asthma flares. 5.Exogenous obesity Some of her weight gainseems to besecondary tot psychotropic medications. Immunizations Given and Recorded Vaccine Date Status [...] B pediatric vaccine 99 Recorded 1Result Comment: Communications Professor: [employer] 2Result Comment: Unit: Unknown Route: Intramuscular Communications Professor: [employer] 3Result Comment: Communications Professor: Unknown Communications Professor 4Result Comment: Communications Professor: Unknown Communications Professor 5Result Comment: Communications Professor: [employer] 6Result Comment: Communications Professor: [employer] 7Result Comment: Communications Professor: [employer] 8Result Comment: Communications Professor: [employer] 9Result Comment: Communications Professor: Not Listed 10Result Comment: Communications Professor: [employer] 11Result Comment: Communications Professor: [employer] 12Result Comment: Unit: Unknown Route: Intramuscular Communications Professor: [employer] 13Result Comment: Unit: Unknown Route: Intramuscular Communications Professor: [employer] 14Result Comment: Communications Professor: [employer] PA[employer] 15Result Comment: Communications Professor: [employer] 16Result Comment: Communications Professor: [employer] 17Result Comment: Communications Professor: [employer] 18Result Comment: Communications Professor: Unknown Communications Professor 19Result Comment: Communications Professor: Unknown Communications Professor 20Result Comment: Communications Professor: Unknown Communications Professor Duplicate 21Result Comment: Communications Professor: Unknown Communications Professor [employer] 22Result Comment: Communications Professor: Unknown Communications Professor 23Result Comment: Communications Professor: Unknown Communications Professor 24Result Comment: Communications Professor: Unknown Communications Professor 25Result Comment: Communications Professor: Unknown Communications Professor 26Result Comment: Communications Professor: Unknown Communications Professor 27Result Comment: Communications Professor: Unknown Communications Professor 28Result Comment: Communications Professor: Unknown Communications Professor 29Result Comment: Communications Professor: Unknown Communications Professor 30Result Comment: Communications Professor: Unknown Communications Professor 31Result Comment: Communications Professor: Unknown Communications Professor 32Result Comment: Communications Professor: Unknown Communications Professor 33Result Comment: Communications Professor: Unknown Communications Professor Medications acetaminophen 650 mg oral tablet, extended release Start: 11/10/23 9:05:00 AM EDT, 1 tab, PO, q4h, as needed Start Date: 11/10/23 Status: Ordered Albuterol (Eqv-ProAir HFA) 90 mcg/inh inhalation aerosol Start: 11/25/23 6:23:00 PM EDT, 2 puffs, inhaled, q4h, Disp# 18 g, Refills: 3, PRN: as needed for wheezing, Pharmacy: [facility] Start Date: 11/25/23 Stop Date: 11/19/24 Status: Ordered albuterol 0.083% for nebulization Start: 12/10/23 12:41:00 PM EDT, 3 mL, inhaled, q6h, Disp# 30 each, Refills: 5, PRN: as needed for wheezing, Pharmacy: [id number] Start Date: 12/10/23 Status: Ordered calcium (as carbonate) 500 mg oral tablet Start: 05/07/22 10:03:00 AM EDT, PO, Daily, prn heartburn/indigestion Start Date: 05/07/22 Status: Ordered cetirizine 10 mg oral tablet Start: 11/25/23 6:32:00 PM EDT, 1 tab, PO, Daily, Disp# 90 tab, Refills: 3, PRN: as needed for allergy symptoms, Pharmacy: [facility] Start Date: 11/25/23 Stop Date: 11/19/24 Status: Ordered Emgality Prefilled Pen 120 mg/mL subcutaneous solution Start: 10/15/23 2:10:00 PM EST, 120 mg =, subQ, once every 28 days Start Date: 10/15/23 Status: Ordered EpiPen Auto-Injector 0.3 mg injectable kit Start: 04/20/24 4:54:00 PM EDT, 0.3 mg =, IM, ONCE, Disp# 1 kit, Refills: 1, PRN: as needed for anaphylaxis, Pharmacy: [facility] Start Date: 04/20/24 Status: Ordered [...] Note to Pharmacy: Send 3 diskus, Pharmacy: [facility] Start Date: 05/18/24 Stop Date: [...] Daily, Disp# 90 tab, Refills: 3, Pharmacy: [facility] Start Date: 05/18/24 Stop Date: 05/13/25 Status: Ordered magnesium oxide 400 mg (241.3 mg elemental magnesium) oral tablet Start: 11/10/23 9:15:00 AM EDT, 1 tab, PO, Daily Start Date: 11/10/23 Status: Ordered montelukast 10 mg oral tablet Start: 07/20/24 3:51:00 PM EST, 1 tab, PO, qPM, Disp# 30 tab, Refills: 5, Pharmacy: [facility] Start Date: 07/20/24 Stop Date: [...] Active 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 Major depressive disorder, recurrent Confirmed Active Exogenous obesity Confirmed Active Suicidal ideation Confirmed Active Syncope Confirmed Active Tachycardia Confirmed Active TMJ (temporomandibular joint disorder) Confirmed Active Vitamin D deficiency Confirmed Active Diagnosis Diagnosis Type Effective Dates Health Status Clinical Service Informant Suicidal ideation Discharge Diagnosis 07/20/24 Non-Specified Borderline personality disorder in adult Discharge Diagnosis 07/20/24 Non-Specified Allergic rhinitis Discharge Diagnosis 07/20/24 Non-Specified Exogenous obesity Discharge Diagnosis 07/20/24 Non-Specified Asthma Discharge Diagnosis 07/20/24 Non-Specified Procedures Procedure Date Related Diagnosis Body Site Status Colonoscopy 01/15/22 Completed None Completed Vital Signs Most recent to oldest [Reference Range]: 1 Patient Weight 107 kg (07/20/24 3:42 PM) Heart Rate 99 bpm (07/20/24 3:42 PM) Blood Pressure 108/84mmHg (07/20/24 3:42 PM) Social History Social History Type Response Smoking Status Former Smoker, quit > 1 yr Sex Female Sex Representation Female (finding) [facility] Out[facility] Note * MD Cesar, Louisa Teague: PERFORM Event Display: [facility] Out[facility] Note Authored Date: [id number] Assessment/Plan 1.Borderline personality disorder in adult She feels that she has been more stablesincebeing on Zyprexa. She is sleeping better at nightand is up to 15 mg at bedtime.Unfortunately, she has had some weight gain since being on theolanzapine, but is working with psychiatry to help stabilize this. 2.Suicidal ideation She has had at least 2trips to the emergency department because of suicidalthreats or ideation, but states that she does notfeelsuicidalat this time. She feels she has too much to live forand is activelypouring herself into training her dog. This past weekend was very difficult as it was the anniversary of her father's . 3.Allergic rhinitis Feels that her allergic rhinitis is improvedon the montelukast. 4.Asthma Has been more stable since being on montelukast regularlyand is not having as many asthma flares. 5.Exogenous obesity Some of her weight gainseems to besecondary tothe psychotropic medications. Chief Complaint ER f/up seen by [facility] Report on chart History of Present Illness Pt is here accompanied by her service dog, , whom she is currently training.She has broken up with her boyfriend, moved out of her previous apartment and lost her job. She is currently living with her Mother, but would like to be independent. She had a recent trip to the ED due to suicidal ideation. She has no intent to hurt herself at thistime and is working with her psychiatrist thru [facility]. Review of Systems Cardiovascular:No Chest Pain,No Leg Swelling (Edema),No Lightheadedness, Respiratory:No shortness of breath,No Wheezing,No Productive Cough Gastrointestinal:No Abdominal Pain,No Loss of Appetite,No Diarrhea,No Nausea, Physical Exam Vitals & Measurements HR:99(Monitored) BP:108/84 WT:107.000kg(Dosing) WT:107kg Constitutional:ObeseWell-hydratedNo acute distress Cardiovascular:Normal rateNormal rhythmNo murmurNo dependent edema Pulmonary:Normal respiratory effortClear lung sounds bilaterally Skin: Warm, dry, no rash, Affect is calm. 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 Suicidal ideation Syncope Tachycardia TMJ (temporomandibular joint [...] purified chick embryo 10/03/2022 Recorded Comments : Communications Professor: Sanofi P[employer]ur rabies vaccine, purified chick embryo 09/26/2022 Recorded Comments : Communications Professor: San[employer] P[employer] rabies vaccine, purified chick embryo 09/22/2022 Recorded Comments : Communications Professor: San[employer] P[employer] rabies vaccine, purified chick embryo 09/19/2022 Recorded Comments : Communications Professor: Sanofi Pasteur tetanus/diphtheria/pertuss, acel (Tdap) 09/19/2022 Recorded influenza virus vaccine, inactivated 04/29/2022 Recorded Comments : Communications Professor: SANOFI PA[employer]UR pneumococcal 13-valent vaccine 10/18/2021 Recorded Comments : Communications Professor: [employer] haemophilus b conj (PRP-OMP) vaccine 10/12/2021 Recorded Comments : Communications Professor: [employer] SARS COVID Vaccine Unspecified 06/12/2021 Recorded SARS-CoV-2 (COVID-19) mRNA-[id number] vaccine 10/11/2020 Recorded Comments : Unit: Unknown Route: Intramuscular Communications Professor: [employer] SARS-CoV-2 (COVID-19) mRNA-[id number] vaccine 09/13/2020 Recorded Comments : Unit: Unknown Route: Intramuscular Communications Professor: [employer] influenza virus vaccine, inactivated 05/06/2020 Recorded Comments : Unit: Unknown Route: Intramuscular Communications Professor: Sanofi Pasteur influenza virus vaccine, inactivated 08/22/2019 Recorded meningococcal group B vaccine 06/29/2018 Recorded meningococcal conjugate vaccine 08/25/2017 Recorded influenza virus vaccine, inactivated 05/29/2017 Recorded human papillomavirus vaccine 02/25/2017 Recorded Comments : Communications Professor: [employer] human papillomavirus vaccine 10/21/2016 Recorded Comments : Communications Professor: [employer] human papillomavirus vaccine 08/23/2016 Recorded Comments : Communications Professor: [employer] Meningococcal Vaccine Unspecified 02/08/2013 Recorded tetanus/diphtheria/pertuss, acel (Tdap) 02/08/2013 Recorded Comments : Communications Professor: Not Listed meningococcal conjugate vaccine 02/08/2013 Recorded Comments : Communications Professor: [employer] PA[employer] varicella virus vaccine 03/13/2010 Recorded Comments : Communications Professor: Unknown Communications Professor influenza virus vaccine, inactivated 05/15/2009 Recorded Comments : Communications Professor: Unknown Communications Professor influenza virus vaccine, inactivated 05/15/2009 Recorded influenza virus vaccine, inactivated 05/15/2009 Recorded influenza virus vaccine, inactivated 07/15/2008 Recorded Comments : Communications Professor: Unknown Communications Professor influenza virus vaccine, inactivated 07/15/2008 Recorded influenza virus vaccine, inactivated 07/15/2008 Recorded Hepatitis A Vaccine Unspecified 12/04/2006 Recorded hepatitis A pediatric vaccine 12/04/2006 Recorded Hepatitis A Vaccine Unspecified 05/27/2006 Recorded hepatitis A pediatric vaccine 05/27/2006 Recorded poliovirus vaccine, inactivated 09/11/2004 Recorded Comments : Communications Professor: Unknown Communications Professor measles/mumps/rubella virus vaccine 09/11/2004 Recorded Comments : Communications Professor: Unknown Communications Professor diphtheria/tetanus/pertuss, acel (DTaP) 09/11/2004 Recorded Comments : Communications Professor: Unknown Communications Professor haemophilus b conj (PRP-OMP) vaccine 03/09/2002 Recorded pneumococcal 7-valent vaccine 07/27/2001 Recorded varicella virus vaccine 06/01/2001 Recorded Comments : Communications Professor: Unknown Communications Professor poliovirus vaccine, inactivated 06/01/2001 Recorded Comments : Communications Professor: Unknown Communications Professor pneumococcal 7-valent vaccine 06/01/2001 Recorded diphtheria/tetanus/pertuss, acel (DTaP) 06/01/2001 Recorded Comments : Communications Professor: Unknown Communications Professor hepatitis B adult vaccine 02/24/2001 Recorded poliovirus vaccine, inactivated 02/24/2001 Recorded Comments : Communications Professor: Unknown Communications Professor measles/mumps/rubella virus vaccine 02/24/2001 Recorded Comments : Communications Professor: Unknown Communications Professor hepatitis B pediatric vaccine 02/24/2001 Recorded haemophilus b conj (PRP-OMP) vaccine 02/24/2001 Recorded diphtheria/tetanus/pertuss, acel (DTaP) 02/18/2001 Recorded Comments : Communications Professor: Unknown Communications Professor poliovirus vaccine, inactivated 05/19/2000 Recorded Comments : Communications Professor: Unknown Communications Professor haemophilus b conj (PRP-OMP) vaccine 05/19/2000 Recorded diphtheria/tetanus/pertuss, acel (DTaP) 05/19/2000 Recorded Comments : Communications Professor: Unknown Communications Professor hepatitis B adult vaccine 03/31/2000 Recorded poliovirus vaccine, inactivated 03/31/2000 Recorded Comments : Communications Professor: Unknown Communications Professor hepatitis B pediatric vaccine 03/31/2000 Recorded haemophilus b conj (PRP-OMP) vaccine 03/31/2000 Recorded diphtheria/tetanus/pertuss, acel (DTaP) 03/31/2000 Recorded Comments : Communications Professor: Unknown Communications Professor hepatitis B adult vaccine 1999 Recorded hepatitis B pediatric vaccine 1999 Recorded Recommendations Health Maintenance Pending(in the next year) Due Adult COVID-19 Vaccination due07/20/24Unknown Frequency Adult Folic Acid Supplementation due07/20/24and every 3year Adult Social Determinants of Health Screening due07/20/24Unknown Frequency Pneumococcal Vaccine Adults and Adolescents with Chronic Illness due07/20/24One-time only Due In Future Adult Influenza Vaccine not due until02/07/25and every 1year Satisfied(in the past 1 year) Satisfied Adult Influenza Vaccine on05/18/24.Satisfied by ROMERO Wallis Anne L Body Mass Index on05/18/24.Satisfied by ROMERO Wallis Anne L Depression Follow Up Plan on06/22/24.Satisfied by KAILYN Rouse Caitlin M Electronic Signature on File Electronically Reviewed/Signed by: Louisa Guerrero MD Author Signature Dt/Tm:07/20/2024 06:04 PM Family Medicine [facility] Patient Care team information Care Team Related Persons Name: BENJAMIN MCKNIGHT"
--- OUTSIDE RECORDS SUMMARY | 2024-10-24 09:39 | External Medical Summary | Continuity of Care Document ---
Author Name Unknown Organization [facility] Address [address] [place] [address] BAMBI TANNER [id number] Care Team Providers Care Covering Machine Operator Name Role Phone Louisa Guerrero Primary Care Physician [phone] Encounter [facility] [id number] Date(s): 05/18/24 - 05/18/24 [facility] LTZ [facility] - [address] BAMBI [id number] Encounter Diagnosis Body mass index [BMI] 38.0-38.9, adult(Discharge Diagnosis) - 05/18/24 Health maintenance examination(Discharge Diagnosis) - 05/18/24 Bipolar disorder in partial remission(Discharge Diagnosis) - 05/18/24 Asthma(Discharge Diagnosis) - 01/06/24 Hypothyroidism(Discharge Diagnosis) - 05/18/24 Hypothyroidism, adult(Discharge Diagnosis) - 05/18/24 Folliculitis of axilla(Discharge Diagnosis) - 05/18/24 Discharge Disposition: Home or Self Care Attending Physician: MD Guerrero Alice E Referring Physician: MD Guerrero Alice E Allergies, Adverse Reactions, Alerts Substance Criticality Severity Reaction Reaction Severity Status ibuprofen rebound headache Act jack melatonin unknown Active Latex Itching swelling Active cinnamon anaphylaxis Active SEROquel Aggression homicidal ideation suicidal ideation Active Immunizations Given and Recorded Vaccine Date Status Refusal Reason influenza virus vaccine, inactivated 05/18/24 Give n rabies vaccine, purified chick embryo 1 10/03/22 R ecorded rabies vaccine, purified chick embryo 2 09/26/22 R ecorded rabies vaccine, purified chick embryo 3 09/22/22 R ecorded rabies vaccine, purified chick embryo 4 09/19/22 R ecorded tetanus/diphtheria/pertuss, acel (Tdap) 09/19/22 R ecorded tetanus/diphtheria/pertuss, acel (Tdap) 5 02/08/13 Recorded pneumococcal 13-valent vaccine 6 10/18/21 Recorded haemophilus b conj (PRP-OMP) vaccine 7 10/12/21 Re corded haemophilus b conj (PRP-OMP) vaccine 03/09/02 Ronen rded haemophilus b conj (PRP-OMP) vaccine 02/24/01 Ronen rded haemophilus b conj (PRP-OMP) vaccine 05/19/00 Ronen rded haemophilus b conj (PRP-OMP) vaccine 03/31/00 Ronen rded SARS COVID Vaccine Unspecified 06/12/21 Recorded SARS-CoV-2 (COVID-19) mRNA-1273 vaccine 8 10/11/20 Recorded SARS-CoV-2 (COVID-19) mRNA-1273 vaccine 9 09/13/20 Recorded meningococcal group B vaccine 06/29/18 Recorded meningococcal conjugate vaccine 08/25/17 Recorded meningococcal conjugate vaccine 10 02/08/13 Record ed human papillomavirus vaccine 11 02/25/17 Recorded human papillomavirus vaccine 12 10/21/16 Recorded human papillomavirus vaccine 13 08/23/16 Recorded varicella virus vaccine 14 03/13/10 Recorded varicella virus vaccine 15 06/01/01 Recorded hepatitis A pediatric vaccine 12/04/06 Recorded hepatitis A pediatric vaccine 05/27/06 Recorded hepatitis A adult vaccine 16 12/04/06 Recorded hepatitis A adult vaccine 17 05/27/06 Recorded poliovirus vaccine, inactivated 18 09/11/04 Record ed poliovirus vaccine, inactivated 19 06/01/01 Record ed poliovirus vaccine, inactivated 20 02/24/01 Record ed poliovirus vaccine, inactivated 21 05/19/00 Record ed poliovirus vaccine, inactivated 22 03/31/00 Record ed measles/mumps/rubella virus vaccine 23 09/11/04 Re corded measles/mumps/rubella virus vaccine 24 02/24/01 Re corded diphtheria/tetanus/pertuss, acel (DTaP) 25 09/11/04 Recorded diphtheria/tetanus/pertuss, acel (DTaP) 26 06/01/01 Recorded diphtheria/tetanus/pertuss, acel (DTaP) 27 02/18/01 Recorded diphtheria/tetanus/pertuss, acel (DTaP) 28 05/19/00 Recorded diphtheria/tetanus/pertuss, acel (DTaP) 29 03/31/00 Recorded pneumococcal 7-valent vaccine 07/27/01 Recorded pneumococcal 7-valent vaccine 06/01/01 Recorded hepatitis B pediatric vaccine 02/24/01 Recorded hepatitis B pediatric vaccine 03/31/00 Recorded hepatitis B pediatric vaccine 99 Recorded 1Result Comment: Auto Parts Handler: Sanofi Pasteur 2Result Comment: Auto Parts Handler: Sanofi Pasteur 3Result Comment: Auto Parts Handler: Sanofi Pasteur 4Result Comment: Auto Parts Handler: Sanofi Pasteur 5Result Comment: Auto Parts Handler: Not Listed 6Result Comment: Auto Parts Handler: [employer] 7Result Comment: Auto Parts Handler: [employer] 8Result Comment: Unit: Unknown Route: Intramuscular Auto Parts Handler: [employer] 9Result Comment: Unit: Unknown Route: Intramuscular Auto Parts Handler: [employer] 10Result Comment: Auto Parts Handler: SANOFI PASTEUR 11Result Comment: Auto Parts Handler: [employer] 12Result Comment: Auto Parts Handler: [employer] 13Result Comment: Auto Parts Handler: [employer] 14Result Comment: Auto Parts Handler: Unknown Auto Parts Handler 15Result Comment: Auto Parts Handler: Unknown Auto Parts Handler 16Result Comment: Auto Parts Handler: Unknown Auto Parts Handler Duplicate 17Result Comment: Auto Parts Handler: Unknown Auto Parts Handler Duplicate 18Result Comment: Auto Parts Handler: Unknown Auto Parts Handler 19Result Comment: Auto Parts Handler: Unknown Auto Parts Handler 20Result Comment: Auto Parts Handler: Unknown Auto Parts Handler 21Result Comment: Auto Parts Handler: Unknown Auto Parts Handler 22Result Comment: Auto Parts Handler: Unknown Auto Parts Handler 23Result Comment: Auto Parts Handler: Unknown Auto Parts Handler 24Result Comment: Auto Parts Handler: Unknown Auto Parts Handler 25Result Comment: Auto Parts Handler: Unknown Auto Parts Handler 26Result Comment: Auto Parts Handler: Unknown Auto Parts Handler 27Result Comment: Auto Parts Handler: Unknown Auto Parts Handler 28Result Comment: Auto Parts Handler: Unknown Auto Parts Handler 29Result Comment: Auto Parts Handler: Unknown Auto Parts Handler Medications Abilify 5 mg oral tablet Start: 05/18/24 5:46:00 PM EDT, 1 tab, PO, Daily Start Date: 05/18/24 Status: Ordered acetaminophen 650 mg oral tablet, extended release Start: 11/10/23 9:05:00 AM EDT, 1 tab, PO, q4h, as needed Start Date: 11/10/23 Status: Ordered Albuterol (Eqv-ProAir HFA) 90 mcg/inh inhalation aerosol Start: 11/25/23 6:23:00 PM EDT, 2 puffs, inhaled, q4h, Disp# 18 g, Refills: 3, PRN: as needed for wheezing, Pharmacy: [facility] Start Date: 11/25/23 Stop Date: 11/19/24 Status: Ordered albuterol 0.083% for nebulization Start: 12/10/23 12:41:00 PM EDT, 3 mL, inhaled, q6h, Disp# 30 each, Refills: 5, PRN: as needed for wheezing, Pharmacy: [id number] Start Date: 12/10/23 Status: Ordered calcium (as carbonate) 500 mg oral tablet Start: 05/07/22 10:03:00 AM EDT, PO, Daily, prn heartburn/indigestion Start Date: 05/07/22 Status: Ordered cetirizine 10 mg oral tablet Start: 11/25/23 6:32:00 PM EDT, 1 tab, PO, Daily, Disp# 90 tab, Refills: 3, PRN: as needed for allergy symptoms, Pharmacy: [facility] Start Date: 11/25/23 Stop Date: 11/19/24 Status: Ordered doxycycline hyclate 100 mg oral capsule Start: 05/18/24 6:13:00 PM EDT, 1 cap, PO, bid, Disp# 14 cap, Refills: 0, Pharmacy: [facility]acy #[id number] Start Date: 05/18/24 Stop Date: 05/25/24 Status: Ordered Emgality Prefilled Pen 120 mg/mL subcutaneous solution Start: 10/15/23 2:10:00 PM EST, 120 mg =, subQ, once every 28 days Start Date: 10/15/23 Status: Ordered EpiPen Auto-Injector 0.3 mg injectable kit Start: 04/20/24 4:54:00 PM EDT, 0.3 mg =, IM, ONCE, Disp# 1 kit, Refills: 1, PRN: as needed for anaphylaxis, Pharmacy: [id number] Start Date: 04/20/24 Status: Ordered ferrous sulfate [...] Note to Pharmacy: Send 3 diskus, Pharmacy: [facility] Start Date: 05/18/24 Stop Date: 05/13/25 Status: Ordered Lactaid Start: 11/13/23 2:09:00 PM EDT, 1 tab, PO, at start of lactose-containing meal Start Date: 11/13/23 Status: Ordered levothyroxine 50 mcg (0.05 mg) oral tablet Start: 05/18/24 6:20:00 PM EDT, 1 tab, PO, Daily, Disp# 90 tab, Refills: 3, Pharmacy: [facility] Start Date: 05/18/24 Stop Date: [...] PO, Daily Start Date: 05/07/22 Status: Ordered ondansetron 8 mg oral tablet, [...] PO, Daily Start Date: 11/13/23 Status: Ordered Mental Status 05/18/24 Barriers to Learning one year None evide nt Mandatory Health Literacy Documentation Yes Health Literacy Communication Barriers N ever Primary Language Citizen Of [place] Problem List Condition Confirmation Course Effective Dates [...] Active 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 Major depressive disorder, recurrent Confirmed Active Exogenous obesity Confirmed Active Suicidal ideation Confirmed Active Syncope Confirmed Active Tachycardia Confirmed Active TMJ (temporomandibular joint disorder) Confirmed Active Vitamin D deficiency Confirmed Active Diagnosis Diagnosis Type Effective Dates Health Status Clinical Service Informant Health maintenance examination Discharge Diagnosis 05/18/24 Non-Specified Bipolar disorder in partial remission Discharge Diagnosis 05/18/24 Non-Specified Hypothyroidism Discharge Diagnosis 05/18/24 Non-Specified Body mass index [BMI] 38.0-38.9, adult Discharge Diagnosis 05/18/24 Non-Specified Hypothyroidism, adult Discharge Diagnosis 05/18/24 Non-Specified Folliculitis of axilla Discharge Diagnosis 05/18/24 Non-Specified Asthma Discharge Diagnosis 01/06/24 Non-Specified Procedures Procedure Date Related Diagnosis Body Site Status Colonoscopy 01/15/22 Completed None Completed Results Most recent to oldest [Reference Range]: 1 Cervical Canc Screen without HPV Outside Negative (11/20/22 8:13 AM) Vital Signs Most recent to oldest [Reference Range]: 1 Height 160.5 cm (05/18/24 5:50 PM) Patient Weight 98.4 kg (05/18/24 5:50 PM) Body Mass Index 38.2 kg/m2 (05/18/24 5:50 PM) Heart Rate 96 bpm (05/18/24 5:50 PM) Blood Pressure 100/76mmHg (05/18/24 5:50 PM) Social History Social History Type Response Smoking Status Former Smoker, quit > 1 yr Sex Female Sex Representation Female (finding) Patient Care team information Care Team Related Persons Name: BENJAMIN MCKNIGHT
--- OUTSIDE RECORDS SUMMARY | 2024-10-24 09:39 | External Medical Summary | Continuity of Care Document ---
Author Name Unknown Organization [facility] Address [address] [facility] BAMBI TANNER [id number] Care Team Providers Care Analyst Microbiology Lab Name Role Phone Cesar Louisa Teague Primary Care Physician [phone] Encounter [facility] [id number] Date(s): 06/17/24 - 06/17/24 [facility] LTZ 6 [facility] - [address] [place] [id number] Encounter Diagnosis Borderline personality disorder in adult(Discharge Diagnosis) - 06/17/24 Depression(Discharge Diagnosis) - 06/17/24 Acute rhinosinusitis(Discharge Diagnosis) - 06/17/24 Discharge Disposition: Home or Self Care Attending Physician: KAILYN Rouse Caitlin M Referring Physician: KAILYN Rouse Caitlin M Allergies, Adverse Reactions, Alerts Substance Criticality Severity Reaction Reaction Severity Status ibuprofen rebound headache Act jack melatonin unknown Active SEROquel Aggression homicidal ideation suicidal ideation Active Latex Itching swelling Active cinnamon anaphylaxis Active Immunizations Given and Recorded Vaccine Date [...] B pediatric vaccine 99 Recorded 1Result Comment: Well Reactivator Operator: Sanofi Pasteur 2Result Comment: Well Reactivator Operator: Sanofi Pasteur 3Result Comment: Well Reactivator Operator: Sanofi Pasteur 4Result Comment: Well Reactivator Operator: Sanofi Pasteur 5Result Comment: Well Reactivator Operator: Not Listed 6Result Comment: Well Reactivator Operator: [employer] 7Result Comment: Well Reactivator Operator: [employer] 8Result Comment: Unit: Unknown Route: Intramuscular Well Reactivator Operator: [employer] 9Result Comment: Unit: Unknown Route: Intramuscular Well Reactivator Operator: [employer] 10Result Comment: Well Reactivator Operator: SANOFI PASTEUR 11Result Comment: Well Reactivator Operator: [employer] 12Result Comment: Well Reactivator Operator: [employer] 13Result Comment: Well Reactivator Operator: [employer] 14Result Comment: Well Reactivator Operator: Unknown Well Reactivator Operator 15Result Comment: Well Reactivator Operator: Unknown Well Reactivator Operator 16Result Comment: Well Reactivator Operator: Unknown Well Reactivator Operator Duplicate 17Result Comment: Well Reactivator Operator: Unknown Well Reactivator Operator Duplicate 18Result Comment: Well Reactivator Operator: Unknown Well Reactivator Operator 19Result Comment: Well Reactivator Operator: Unknown Well Reactivator Operator 20Result Comment: Well Reactivator Operator: Unknown Well Reactivator Operator 21Result Comment: Well Reactivator Operator: Unknown Well Reactivator Operator 22Result Comment: Well Reactivator Operator: Unknown Well Reactivator Operator 23Result Comment: Well Reactivator Operator: Unknown Well Reactivator Operator 24Result Comment: Well Reactivator Operator: Unknown Well Reactivator Operator 25Result Comment: Well Reactivator Operator: Unknown Well Reactivator Operator 26Result Comment: Well Reactivator Operator: Unknown Well Reactivator Operator 27Result Comment: Well Reactivator Operator: Unknown Well Reactivator Operator 28Result Comment: Well Reactivator Operator: Unknown Well Reactivator Operator 29Result Comment: Well Reactivator Operator: Unknown Well Reactivator Operator Medications Abilify 5 mg oral tablet Start: [...] 3, PRN: as needed for wheezing, Pharmacy: [facility] Start Date: 11/25/23 Stop Date: 11/19/24 Status: Ordered albuterol 0.083% for nebulization Start: 12/10/23 12:41:00 PM EDT, 3 mL, inhaled, q6h, Disp# 30 each, Refills: 5, PRN: as needed for wheezing, Pharmacy: [id number] Start Date: 12/10/23 Status: Ordered amoxicillin-clavulanate 875 mg-125 mg oral tablet Start: 06/17/24 1:28:00 PM EST, amoxicillin 1 tab, PO, q12h, Disp# 14, [id number] Start Date: 06/17/24 Stop Date: 06/24/24 Status: Ordered calcium (as carbonate) 500 mg oral tablet Start: 05/07/22 10:03:00 AM EDT, PO, Daily, prn heartburn/indigestion Start Date: 05/07/22 Status: Ordered cetirizine 10 mg oral tablet Start: 11/25/23 6:32:00 PM EDT, 1 tab, PO, Daily, Disp# 90 tab, Refills: 3, PRN: as needed for allergy symptoms, Pharmacy: [facility] Start Date: 11/25/23 Stop Date: 11/19/24 Status: Ordered doxycycline hyclate 100 mg oral capsule Start: 05/18/24 6:13:00 PM EDT, 1 cap, PO, bid, Disp# 14 cap, Refills: 0, [id number] Start Date: 05/18/24 Stop Date: 05/25/24 Status: Ordered Emgality Prefilled Pen 120 mg/mL subcutaneous solution Start: 10/15/23 2:10:00 PM EST, 120 mg =, subQ, once every 28 days Start Date: 10/15/23 Status: Ordered EpiPen Auto-Injector 0.3 mg injectable kit Start: 04/20/24 4:54:00 PM EDT, 0.3 mg =, IM, ONCE, Disp# 1 kit, Refills: 1, PRN: as needed for anaphylaxis, Pharmacy: [id number] Start Date: 04/20/24 Status: Ordered ferrous sulfate [...] Note to Pharmacy: Send 3 diskus, Pharmacy: [facility] Start Date: 05/18/24 Stop Date: 05/13/25 Status: Ordered Lactaid Start: 11/13/23 2:09:00 PM EDT, 1 tab, PO, at start of lactose-containing meal Start Date: 11/13/23 Status: Ordered levothyroxine 50 mcg (0.05 mg) oral tablet Start: 05/18/24 6:20:00 PM EDT, 1 tab, PO, Daily, Disp# 90 tab, Refills: 3, Pharmacy: [facility] Start Date: 05/18/24 Stop Date: [...] Active 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 part Confirmed Active Major depressive disorder, recurrent Confirmed Active Exogenous obesity Confirmed Active Suicidal ideation Confirmed Active Syncope Confirmed Active Tachycardia Confirmed Active TMJ (temporomandibular joint disorder) Confirmed Active Vitamin D deficiency Confirmed Active Diagnosis Diagnosis Type Effective Dates Health Status Clinical Service Informant Depression Discharge Diagnosis 06/17/24 Non-Specified Acute rhinosinusitis Discharge Diagnosis 06/17/24 Non-Specified Borderline personality disorder in adult Discharge Diagnosis 06/17/24 Non-Specified Procedures Procedure Date Related Diagnosis Body Site Status Colonoscopy 01/15/22 Completed None Completed Vital Signs Most recent to oldest [Reference Range]: 1 Patient Weight 100.2 kg (06/17/24 12:57 PM) Heart Rate 90 bpm (06/17/24 12:57 PM) Blood Pressure 126/80mmHg (06/17/24 12:57 PM) Social History Social History Type Response Smoking Status Former Smoker, quit > 1 yr Sex Female Sex Representation Female (finding) Patient Care team information Care Team Related Persons Name: BENJAMIN MCKNIGHT
--- NOTE | 2024-10-24 09:41 | Discharge Summary ---
Discharge Summary Date of Service October 24, 2024 Principal Dx & Hospital Course #1 = Principal Diagnosis (1) Observed seizure-like activity: (2) Drug overdose, multiple drugs: Plan Patient w/ hx of Depression, Hypothyroidism, and admission to [facility] due to threat of self harm in separate admission to another hospital 1 month ago who comes to ED after intentional medication overdose and seizure-like activity. Medication overdose - Patient with stated medication overdose as detailed above. 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) - Patient states she had an episode of seizures in the past, and when asked she stated first that it was 10 years ago and then that it was 13 years ago; never treated - Patient's initial episode seen by EMS resolving with smelling salts, and episodes in ED being interrupted by noxious stimuli does not follow typical pattern for usual tonic/clonic seizures ?suggestive of PNES given psychiatric hx - Will hold off addition of anti-seizure medications and/or neurology consult given episodes do not appear to follow typical neurologic pattern, but instead raise the question for PNES - Psychiatry consulted as detailed above Asthma - Uses inhaler twice a day to prevent episodes of SOB (not because she feels SOB0 - Continue albuterol inh prn Dispo: Admit to PCU with 1:1 Fluids: NSS Diet: Regular VTE ppx: Ambulation Admission HPI Per Admitting Provider Patient w/ hx of Depression, Hypothyroidism, and admission to [facility] due to threat of self harm in separate admission to another hospital 1 month ago who comes to ED after intentional medication overdose. Patient currently staying in [facility] for "adjustment of medication" after she threatened to hurt herself if they discharge her from the hospital she was admitted to which she cannot recall the name of. While in [facility], she was being given her pills daily that she then hid away for 3 weeks and took them all today (3 weeks worth of Thorazine, Prozac, Mucinex, Ativan, Metformin, Singulair, Zyprexa, Topamax, and Trazodone). When EMS arrived, patient was having a seizure that resolved after EMS used smelling salts. After arrival to ED, patient had 3-4 more epis odes of seizures lasting around 2-3 minutes of whole body jerking and mild confusion for ~1 minutes after event ended. Nursing states that during seizure- like activity, patient would withdraw from sternal rub (and the first episode resolved after a sternal rub was applied). On her 4th seizure-activity, patient once again withdrew from sternal rub and from noxious stimuli with press of nail bed. After this event ended, patient appeared confused for a few seconds and then responded when her name was called. Patient states she has no family members nearby and does not believe any family members would come visit. Labs/Imaging: CBC with mild leukocytosis with neutrophilic predominance, Hgb of 13.7 with low MCV (79.1). CMP w/o electrolyte abnormalities and renal markers within reference range. LFTs unremarkable. TSH of 2.858. UTox negative. Medical History: [Reviewed] Medications: [Reviewed] Surgical History: [Reviewed] Family history: [Reviewed] Allergies: [Reviewed] Social History: [Reviewed] Discharge Exam GENERAL APPEARANCE NAD, activity normal for age, well developed/ well nourished, no cyanosis, pallor, or diaphoresis. EYES lids/conjunctiva normal. EARS/NOSE/THROAT Mucous membranes moist, nares normal, lips/teeth normal uvula midline without oral pharyngeal erythema, exudate or swelling TMs normal bilaterally. No lymphangitis/lymphedema. HEAD/NECK normocephalic atraumatic, no facial trauma, neck is supple. RESPIRATORY respiratory effort normal, speaks in full sentences, no tripod position, no accessory muscle use. Lungs clear to auscultation without rhonchi, wheezes, rales CARDIAC Regular rate and rhythm, no edema. ABDOMINAL Soft, ND/NT. No evidence of fluid wave. No pulsatile masses on exam, rebound tenderness, Adorno sign or pain over Mcburney's point. MUSCLES/EXTREMITIES No abnormal range of motion, no swelling. SKIN Warm, pink and dry. No rashes, dermatoses, petechiae or lesions. NEUROLOGICAL Speech is clear and appropriate. Normal level of consciousness. Gait and coordination are normal. 5/5 strength in all extremities. PSYCH Normal mood and affect. Judgement/competence is appropriate Discharge Plan Discharge Items Patient Disposition: Home - Self-Care Reason For Visit: MEDICATION OVERDOSE, SEIZURE Discharge Diagnosis: Medication overdose Activity: Resume your previous activity Non-emergency contact: Primary Care Provider Call non-emergency contact if: you have any medication questions Follow-up/Referrals: Joana Langley [Primary Care Provider] - Diet: Regular Addtl Attending Provider Instructions: Follow up with PMD in 2 weeks Pending Studies at Discharge: No Stand-Alone Forms: My [facility], Smoking Cessation Medications and DC Order Prescriptions: New oxcarbazepine 150 mg Tablet 450 mg PO BID Qty: 60 0RF montelukast 10 mg Tablet 10 mg PO HS Qty: 30 0RF Continued Advair Diskus inhalation BID levothyroxine 50 mcg PO QAM [place] 3 1,000 mg PO QAM Singulair 10 mg PO QAM Topamax 100 mg PO QAM Trileptal 300 mg PO BID albuterol 90 mcg inhalation Q4 PRN (Reason: asthma) metformin 500 mg PO QAM Discontinued fluoxetine capsule 40 mg PO QAM hydroxyzine HCl 50 mg PO TID trazodone 50 mg PO QPM Discharge Orders: Discharge Order (Routine); Ordered 10/24/24 Ordered By: Elvis Alfaro Admission Data Admit Date/Time: 10/23/24 01:22 Attending Provider: Elvis Alfaro Admit Provider: Hernando Vasquez Primary Care Provider: Joana Langley Other Providers: Hernando Vasquez; Bnia Lobo; Chris Larson; Karolina Franks; Neema Saha; Leno Hawkins; Cristino Hinojosa Hospital Stay Data Consultations 10/23/24 01:09 ED Decision to Admit Stat 10/23/24 03:32 Consult Psychiatry Routine 10/23/24 04:09 Consult Behavioral Health Liaison Routine Pending Results Patient Have Any Pending Studies at Discharge: No Discharge Instructions Given to Patient (Per Discharging Provider) Follow up with PMD in 2 weeks Supervising Physician Co-Signing Physician Notes Attending addendum: I have physically seen this patient, have supervised the medical residents activities, and agree with the H&P unless as otherwise noted. Assessment and Plan: The patient is a 23-year-old female with past medical history including depression, hypothyroidism, and recent admission to [facility] psychiatry. She was determined to be eighth a threat to herself, with potential self-harm, at a previous admission in the hospital 1 month ago. She comes to the emergency department at [facility] with intentional medication overdose and seizure- like activity. #Medication overdose the patient will be admitted to telemetry for serial cardiac enzymes, serial EKG's, cardiac rhythm monitoring and a 2-D echocardiogram with Dopplers. Placed on maintenance IV fluids Follow serial laboratories Consult to psychiatry Seizure versus psychogenic nonepileptic seizures- No history of previous treatment noted Monitor on telemetry Any use of antiseizure medications will be depend upon psychiatry and/or neurology input Asthma- Continue routine albuterol inhaler as needed Patient be mated to one-to-one observation . Total Time Total Time Spent Total Time Spent (In Minutes): 50 Coding Level of Care Code 49863 INP/OBS DISCH >30 MIN Diagnoses Observed seizure-like activity R56.9 Drug overdose, multiple drugs T50.912A Encounter type: initial encounter Injury intent: intentional self-harm
[2024-10-24] MEDS ORDERED: OXcarbazepine 150 MG TABLET PO SCH (10:45)
[2024-10-24] MEDS ORDERED: Nursing to Pharmacy Communication SCH (10:45)
[2024-10-24 11:39] VITALS: BP 119/87; TEMP 97.9; O2SAT 94
[2024-10-24 16:14] VITALS: PULSE 70
== END 2024-10-24 18:35 | disposition home or self-care (01) ==
LOC: 2S 22:15 → ED 22:15 → SUATTDRO 10-23 01:22 → 2S 10-23 02:56